=== PATIENT | female | born 1950 ===

== ENCOUNTER → 2023-08-27 | Outpatient (REF) | payer MEDICARE, SELFPAY | LOC: DHSLP | PROVIDERS: ATTENDING PHYSICIAN Internal Medicine Interventional Cardiology; FAMILY PHYSICIAN Family Medicine | DX: G47.33 Obstructive sleep apnea (adult) (pediatric) (principal) | CPT/HCPCS: 95800 ==

== ENCOUNTER → 2024-04-02 09:33 | Outpatient (REF) | payer MEDICARE, SELFPAY | LOC: HWRAD 09:33 | PROVIDERS: ATTENDING PHYSICIAN Family Medicine | DX: M54.2 Cervicalgia (principal); M89.8X9 Other specified disorders of bone, unspecified site; G89.29 Other chronic pain; M25.512 Pain in left shoulder | CPT/HCPCS: 72052; 73000; 73030 ==

== ENCOUNTER → 2024-04-13 09:59 | Outpatient (REF) | payer MEDICARE, SELFPAY ==
[2024-04-13 12:15] LABS: % Basophils 0.9 % (0-2); % Eosinophils 4.1 % (0-6); % Immature Granulocytes 0.5 % (0-0.5); % Lymphocytes 19.1 % (20.5-51.1); % Monocytes 8.3 % (1.7-9.3); % Neutrophils 67.1 % (42.2-75.2); Absolute Basophils 0.1 10^3/uL (0-0.2); Absolute Eosinophils 0.3 10^3/uL (0-0.7); Absolute Lymphocytes 1.2 10^3/uL (1.2-3.4); Absolute Monocytes 0.5 10^3/uL (0.1-0.6); Absolute Neutrophils 4.3 10^3/uL (1.4-6.5); Hematocrit 33.3 % (37.0-47.0); Hemoglobin 11.2 g/dL (12.0-16.0); Mean Corp Hgb Conc. 33.6 g/dL (33.0-37.0); Mean Corpuscular Hgb 32.8 pg (27.0-31.0); Mean Corpuscular Volume 97.7 fL (81.0-99.0); Mean Platelet Volume 10.2 fL (7.4-10.4); Nucleated Red Blood Cells % 0 %; Platelet Count 180 10^3/uL (130-400); Red Blood Cell Count 3.41 10^6/uL (4.20-5.40); Red Cell Dist. Width 13.2 % (11.5-14.5); White Blood Cell Count 6.4 10^3/uL (4.8-10.8)
[2024-04-13 12:48] LABS: Albumin 4.1 g/dl (3.5-5.0); Blood Urea Nitrogen 26 mg/dl (7-17); Calcium 9.1 mg/dl (8.4-10.2); Carbon Dioxide 33 mmol/L (22-30); Chloride 102 mmol/L (98-107); Glucose 94 mg/dl (70-99); HDL Cholesterol 67 mg/dl; Iron 99 ug/dl (37-170); LDL Cholesterol, Calculated 82 mg/dl; Phosphorus 3.9 mg/dl (2.5-4.5); Potassium 4.7 mmol/L (3.5-5.1); Sodium 140 mmol/L (135-145); Total Cholesterol 170 mg/dl (50-199); Triglyceride 106 mg/dl (10-149); Very Low Density Lipoprotein 21 mg/dl (0-30); eGFR 39.73
[2024-04-13 12:57] LABS: Percent Saturation 34 % (20-50); Total Iron Binding Capacity 291 ug/dl (265-497)
[2024-04-13 13:01] LABS: Urine Protein 6 mg/dl (0-12); Urine Sodium 137 mmol/L (30-90)
[2024-04-13 13:18] LABS: TSH 5.09 uIU/ml (0.47-4.68)
[2024-04-13 13:37] LABS: Vitamin B12 776 pg/ml (239-931)
== END ==
LOC: RAD 09:59
PROVIDERS: ATTENDING PHYSICIAN Internal Medicine; FAMILY PHYSICIAN Family Medicine; REFERRING PHYSICIAN Internal Medicine Interventional Cardiology
DX: N17.9 Acute kidney failure, unspecified (principal); R53.83 Other fatigue; Z13.220 Encounter for screening for lipoid disorders; E78.2 Mixed hyperlipidemia; D50.9 Iron deficiency anemia, unspecified; D51.9 Vitamin B12 deficiency anemia, unspecified
CPT/HCPCS: 36415; 80061; 80069; 82570; 82607; 82728; 83540; 83550; 84156; 84300; 84443; 85025; 93975

== ENCOUNTER → 2024-04-14 13:38 | Outpatient (REF) | payer MEDICARE, SELFPAY | LOC: HWRAD 13:38 | PROVIDERS: ATTENDING PHYSICIAN Family Medicine | DX: Z13.820 Encounter for screening for osteoporosis (principal); Z12.31 Encounter for screening mammogram for malignant neoplasm of breast; Z78.0 Asymptomatic menopausal state | CPT/HCPCS: 77063; 77067; 77080 ==

== ENCOUNTER → 2024-04-15 09:43 | Outpatient (REF) | payer MEDICARE, SELFPAY | LOC: HWRAD 09:43 | PROVIDERS: ATTENDING PHYSICIAN Internal Medicine; FAMILY PHYSICIAN Family Medicine | DX: N17.9 Acute kidney failure, unspecified (principal) | CPT/HCPCS: 76770 ==

== ENCOUNTER → 2024-05-21 15:14 | Outpatient (REF) | payer MEDICARE, SELFPAY | LOC: HWRAD 15:14 | PROVIDERS: ATTENDING PHYSICIAN Family Medicine | DX: R06.2 Wheezing (principal) | CPT/HCPCS: 71046 ==

== ENCOUNTER → 2024-10-05 11:29 | Outpatient (REF) | payer MEDICARE, SELFPAY | LOC: HWRAD 11:29 | PROVIDERS: ATTENDING PHYSICIAN Internal Medicine Rheumatology; FAMILY PHYSICIAN Family Medicine | DX: R22.32 Localized swelling, mass and lump, left upper limb (principal) | CPT/HCPCS: 76882 ==

== ENCOUNTER 2024-12-24 05:51 | Day surgery (SDC) | payer MEDICARE, SELFPAY ==
--- NOTE | 2024-12-22 13:54 | PTCARENOTE ---
During the nursing phone interview, patient stated that she took Zepbound 5mg dose on 12/22. Dr Polk notified and patient is ok to proceed with restriction of clear liquids only 24 hours prior to surgery.
Patient was notified of change and verbalized understanding of clear liquids only 24 hours prior to arrival on 12/24/24.
[2024-12-24 06:20] VITALS: BMI 26.5
[2024-12-24 06:21] VITALS: BMI 26.5
[2024-12-24] MEDS: TYLENOL 1000 MG PO (06:25)
[2024-12-24] MEDS: NORMOSOL-R/PLASMALYTE-A 1000 IV (06:33)
[2024-12-24 06:39] VITALS: BP 130/67
[2024-12-24 08:09] VITALS: BP 123/66
[2024-12-24 08:15] VITALS: BP 115/64
[2024-12-24 08:30] VITALS: BP 130/73
[2024-12-24 08:45] VITALS: BP 118/70
[2024-12-24 09:00] VITALS: BP 131/76
== END 2024-12-24 09:34 | disposition home or self-care (01) ==
LOC: SDS 05:51
PROVIDERS: ATTENDING PHYSICIAN Surgery
DX: M79.81 Nontraumatic hematoma of soft tissue (principal); D17.79 Benign lipomatous neoplasm of other sites; M25.812 Other specified joint disorders, left shoulder; M79.89 Other specified soft tissue disorders
CPT/HCPCS: 23075; 88304

== ENCOUNTER → 2025-03-10 19:49 | Outpatient (REF) | payer MEDICARE, SELFPAY | LOC: PAVMRI 19:49 | PROVIDERS: ATTENDING PHYSICIAN Surgery; FAMILY PHYSICIAN Family Medicine | DX: M85.60 Other cyst of bone, unspecified site (principal) | CPT/HCPCS: 73221 ==